=== PATIENT | female | born 1970 | race American Indian/Alaskan Native ===

== ENCOUNTER 2021-05-14 12:12 | Emergency (ER) | payer BC ==
[2021-05-14 12:31] VITALS: BP 138/74
[2021-05-14] MEDS ORDERED: LIDOCAINE VISCOUS 2% 15 ML ORAL LIQD PO ONE (12:41)
[2021-05-14] MEDS ORDERED: ALUM-MAG HYDROXIDE-SIMETHICONE 200-200-20MG/5ML ORAL LIQD 30 ML PO ONE (12:41)
--- NOTE | 2021-05-14 12:46 | Emergency Department Report ---
ED Chest Pain HPI - General Chief Complaint: Chest Pain Stated Complaint: CHEST PAIN Time Seen by Provider: 05/14/21 12:24 Source: patient, EMS Mode of arrival: Stretcher Limitations: No Limitations - History of Present Illness Initial Comments: Chief complaint: Chest pain HPI this is a 50-year-old female with history of GERD and "hole in her chart" wh o presents with chest pain for the last 3 days. Intermittent sharp chest pain substernal radiating to the epigastric region. No change with cough inspiration movement. Chest pain at rest. She has a history of chest pain. She was evaluated at [facility] overnight for chest pain several years ago. She is followed by [facility] supervisor coin machine for recurrent chest pain. She has had normal stress test. 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 On previous occasion chest pain caused by caffeine and BC powder use. Patient denies shortness of breath, fever, cough, abdominal pain. She denies leg pain swelling. She did travel by plane from [place] 1 week ago. She does not take oral contraception. She has history of hysterectomy. PCP Dr. Cj Marti Mother has history of mild heart attack MD Complaint: chest pain -: Gradual, days(s) (3 days) Onset: during rest Pain Location: substernal Pain Radiation: abdomen (Epigastric region) Severity: moderate Severity scale (0 -10): 7 Quality: sharp Consistency: intermittent Improves With: nothing Worsens With: nothing Treatments Prior to Arrival: other (EMS transport) - Related Data Previous Rx's Medication Instructions Recorded Last Taken Type Omeprazole 40 mg PO DAILY 30 Days #30 05/14/21 Unknown Rx capsule. Heart Score - HEART Score History: Slightly suspicious EKG: Normal Age: 45-65 Risk factors: No known risk factors Troponin: < normal limit HEART Score: 1 - EKG Read Time Time EKG Completed: 12:19 EKG Read Time: 12:19 ED Review of Systems ROS: Stated complaint: CHEST PAIN Other details as noted in HPI Comment: All other systems reviewed and negative Constitutional: denies: fever, malaise Respiratory: denies: cough, shortness of breath Cardiovascular: chest pain. denies: palpitations Gastrointestinal: denies: abdominal pain, nausea, vomiting Musculoskeletal: denies: back pain ED Past Medical Hx - Past Medical History Previous Medical History?: Yes Additional medical history: GERD - Surgical History Past Surgical History?: Yes Additional Surgical History: Hysterectomy, lipoma excision, lumpectomy, tubal l igation - Family History Family history: CAD/MD, diabetes - Social History Smoking Status: Never Smoker Substance Use Type: None - Medications Home Medications: Home Medications Medication Instructions Recorded Confirmed Last Taken Type Omeprazole 40 mg PO DAILY 30 Days #30 05/14/21 Unknown Rx capsule. ED Physical Exam - General Limitations: No Limitations General appearance: alert, in no apparent distress, other (Pleasant smiling appears comfortable no acute distress) - Head Head exam: Present: atraumatic, normocephalic - Eye Eye exam: Present: normal appearance - ENT ENT exam: Present: mucous membranes moist - Neck Neck exam: Present: normal inspection, full ROM - Respiratory Respiratory exam: Present: normal lung sounds bilaterally. Absent: respiratory distress, wheezes, rales, rhonchi - Cardiovascular Cardiovascular Exam: Present: regular rate, normal rhythm, normal heart sounds. Absent: systolic murmur, diastolic murmur, rubs, gallop - GI/Abdominal GI/Abdominal exam: Present: soft, normal bowel sounds. Absent: distended, tenderness, guarding, rebound - Extremities Exam Extremities exam: Present: normal inspection - Neurological Exam Neurological exam: Present: alert, oriented X3 - Psychiatric Psychiatric exam: Present: normal affect, normal mood - Skin Skin exam: Present: warm, dry, intact, normal color. Absent: rash ED Course Vital Signs 05/14/21 12:31 Temperature 98.4 F Pulse Rate 72 Respiratory 18 Rate Blood Pressure 138/74 [Left] O2 Sat by Pulse 96 Oximetry ED Medical Decision Making - Lab Data Result diagrams: 05/14/21 12:41 05/14/21 12:41 - EKG Data -: EKG Interpreted by Ma EKG shows normal: sinus rhythm, intervals, QRS complexes, ST-T waves Rate: normal - EKG Data 05/14/21 12:47 EKG obtained 1219 EKG interpreted by wy Rate 70 bpm normal rightward axis no ST elevation none ischemic T wave pattern normal QTC - Medical Decision Making Chest pain: PERC negative for PE, however patient does have right axis deviation and EKG and recent history of travel. D-dimer ordered. Atypical ACS. Heart score 1. CBC chemistry troponin within normal limits. D-dimer below threshold considering lobe pretest probability. Patient is discharged home. Diagnosis GERD Critical care attestation.: If time is entered above; I have spent that time in minutes in the direct care of this critically ill patient, excluding procedure time. ED Disposition Clinical Impression: GERD (gastroesophageal reflux disease) Disposition: DC-01 TO HOME OR SELFCARE Is pt being admited?: No Does the pt Need Aspirin: No Condition: Stable Prescriptions: Omeprazole 40 mg PO DAILY 30 Days #30 capsule.dr Forms: Work/School Release Form(ED)
[2021-05-14 13:19] LABS: Basophils # (Auto) 0.1 K/mm3 (0.0-0.1); Basophils % (Auto) 1.5 % (0.0-1.8); Eosinophils # (Auto) 0.3 K/mm3 (0.0-0.4); Eosinophils % (Auto) 3.5 % (0.0-4.3); Hematocrit 35.6 % (30.3-42.9); Hemoglobin 11.6 gm/dl (10.1-14.3); Lymphocytes % (Auto) 36.1 % (13.4-35.0); Mean Corpuscular HGB Conc 33 % (30-34); Mean Corpuscular Volume 80 fl (79-97); Monocytes # (Auto) 0.6 K/mm3 (0.0-0.8); Monocytes % (Auto) 7.4 % (0.0-7.3); Platelet Count 319 K/mm3 (140-440); Red Blood Count 4.47 M/mm3 (3.65-5.03); Red Cell Distribution Width 15.3 % (13.2-15.2)
[2021-05-14 13:34] LABS: Blood Urea Nitrogen 11 mg/dL (7-17); Calcium 8.9 mg/dL (8.4-10.2); Hemolysis Index 40
[2021-05-14 13:37] LABS: BUN/Creatinine Ratio 37
--- NOTE | 2021-05-17 17:42 | Electrocardiograph Report ---
[facility] Test Date: 2021-05-14 Test Time: 12:19:38 Pat Name: JESSICA RIVAS Department: Room: Gender: F Machine Technician: EDWARD : 1970 Requested By: SUZIE ANDREWS Order Number: [id number] Reading MD: Ji Almaraz Measurements Intervals [place] Rate: 71 P: 59 KS: 166 QRS: 125 QRSD: 109 T: 52 QT: 423 QTc: 460 Interpretive Statements Sinus rhythm Right axis deviation No previous ECG available for comparison Electronically Signed On 05-17-2021 17:42:31 EDT by Ji Almaraz
== END 2021-05-14 14:35 | disposition home or self-care (01) ==
LOC: ED 12:12
DX: K21.9 Gastro-esophageal reflux disease without esophagitis (principal); Z90.710 Acquired absence of both cervix and uterus; Z98.890 Other specified postprocedural states; Z98.51 Tubal ligation status
CPT/HCPCS: 36415; 80048; 84484; 85025; 85379; 93005